=== PATIENT | female | born 1985 | race Caucasian/White ===

== ENCOUNTER 2017-12-17 11:47 | Emergency (ER) | payer SELFPAY ==
[2017-12-17] MEDS: predniSONE 20 MG TAB PO (12:49)
[2017-12-17] MEDS: IBUPROFEN 600 MG TAB PO (12:49)
== END 2017-12-17 13:15 | disposition home or self-care (01) ==
LOC: FTE 11:47
DX: H60.502 Unspecified acute noninfective otitis externa, left ear (principal)
CPT/HCPCS: 99283

== ENCOUNTER 2017-12-22 15:21 | Emergency (ER) | payer MEDICAID | END 2017-12-22 16:13 | disposition home or self-care (01) | LOC: FTE 15:21 | DX: H66.93 Otitis media, unspecified, bilateral (principal); H60.93 Unspecified otitis externa, bilateral | CPT/HCPCS: 99283; Z7502 ==